=== PATIENT | female | born 1975 | race Caucasian/White ===

== ENCOUNTER 2022-10-24 13:47 | Emergency (ER) | payer BC ==
--- NOTE | 2022-10-24 13:51 | ERPHSYRPT ---
- History of Present Illness Time Seen by Provider: 10/24/22 13:51 Source: patient, family Exam Limitations: no limitations Physician History: This is a morbidly obese 47-year-old white female who presents with left facial pressure, nasal congestion and left latter day pain. She was brought into the emergency department by ambulance. She was wondering first if she was ov erheated or possibly has a sinus infection. She is having the sinus pressure for approximately 1 week. Patient's had some nausea symptoms as well. She denies any acute/traumatic head injury. She arrives to the emergency department with her vital signs stable. Patient has light sensitivity and noise sensitivity. Timing/Duration: today Head Pain Location: temporal (Left) Severity of Pain-Max: mild (To moderate) Severity of Pain-Current: mild (To moderate) Recent Head Trauma: no recent headache/trauma Modifying Factors: Improves With: exposure to light, noise Associated Symptoms: nasal congestion, No confusion, No dizziness, No facial pain, No fever/chills, No neck pain Previous symptoms: no prior history, no recent treatment Allergies/Adverse Reactions: No Known Drug Allergies Allergy (Unverified 10/24/22 13:50) Travel Risk - International Travel Have you traveled outside of the country in past 3 weeks: No - Coronavirus Screening Are you exhibiting any of the following symptoms?: No Close contact with a COVID-19 positive Pt in past 14-21 Days: No - Review of Systems Constitutional: No Symptoms Eyes: No Symptoms Ears, Nose, & Throat: Nose Congestion Respiratory: No Symptoms Cardiac: No Symptoms Abdominal/Gastrointestinal: No Symptoms Genitourinary Symptoms: No Symptoms Musculoskeletal: No Symptoms Skin: No Symptoms Neurological: Headache Psychological: No Symptoms Endocrine: No Symptoms Hematologic/Lymphatic: No Symptoms Immunological/Allergic: No Symptoms All Other Systems: Reviewed and Negative - Past Medical History Pertinent Past Medical History: No - Past Surgical History Past Surgical History: No - Nursing Vital Signs Nursing Vital Signs: Initial Vital Signs Temperature 98.1 F 10/24/22 13:47 Pulse Rate 87 10/24/22 13:47 Respiratory Rate 14 10/24/22 13:47 Blood Pressure 120/78 10/24/22 13:47 O2 Sat by Pulse Oximetry 97 10/24/22 13:47 Pain Scale Pain Intensity 3 - Physical Exam General Appearance: no apparent distress, alert, anxiety, obese Eye Exam: PERRL/EOMI, eyes nml inspection Ears, Nose, Throat Exam: moist mucous membranes Neck Exam: normal inspection, non-tender, supple, full range of motion Respiratory Exam: normal breath sounds, lungs clear, airway intact, No chest tenderness, No respiratory distress Cardiovascular Exam: regular rate/rhythm, normal heart sounds, normal peripheral pulses Gastrointestinal/Abdominal Exam: soft, normal bowel sounds, No tenderness Back Exam: normal inspection, normal range of motion, No CVA tenderness, No vertebral tenderness Extremity Exam: normal inspection, normal range of motion, pelvis stable Mental Status Exam: alert, oriented x 3, 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 Exam: normal hearing, normal speech, PERRL Motor/Sensory Exam: no motor deficit, no sensory deficit Skin Exam: normal color, warm, dry Lymphatic Exam: No adenopathy SpO2 Interpretation: normal O2 Delivery: Room Air - Course Nursing assessment & vital signs reviewed: Yes Ordered Tests: Active Orders 24 hr Category Date Time Status Surgical Aide STAT Care 10/24/22 14:19 Active IV Insertion STAT Care 10/24/22 14:19 Active HEAD WITHOUT CONTRAST [CT] Stat Exams 10/24/22 14:19 Completed CBC W DIFF Stat Lab 10/24/22 14:30 Completed CMP Stat Lab 10/24/22 14:30 Completed CULTURE,URINE Stat Lab 10/24/22 17:08 Received UA W/RFX UR CULTURE Stat Lab 10/24/22 17:08 Completed Medication Summary Generic Name Dose Route Start Last Admin Trade Name Freq PRN Reason Stop Dose Admin Ceftriaxone Sodium/Dextrose 1 g in 50 mls @ 100 mls/hr 10/24/22 17:22 Rocephin 1 Gm-D5w 50 Ml Bag IV 10/24/22 17:51 STAT STA Discontinued Medications Generic Name Dose Route Start Last Admin Trade Name Freq PRN Reason Stop Dose Admin Hydromorphone HCl 0.5 mg 10/24/22 14:19 10/24/22 14:30 Hydromorphone 1 Mg/1ml Inj IV 10/24/22 14:20 0.5 mg STAT ONE Administration Hydromorphone HCl Confirm 10/24/22 14:27 Hydromorphone 1 Mg/1ml Inj Administered 10/24/22 14:28 Dose 1 mg .ROUTE .STK-MED ONE Sodium Chloride 1,000 mls @ 999 mls/hr 10/24/22 14:19 10/24/22 15:42 Sodium Chloride 0.9% 1000 Ml IV 10/24/22 15:19 Infused .Q1H1M STA Infusion Sodium Chloride Confirm 10/24/22 14:28 Sodium Chloride 0.9% 1000 Ml Administered 10/24/22 14:29 Dose 1,000 mls @ ud .ROUTE .STK-MED ONE Ondansetron HCl 4 mg 10/24/22 14:19 10/24/22 14:30 Ondansetron Hcl 4 Mg/2 Ml Vial IV 10/24/22 14:20 4 mg STAT ONE Administration Ondansetron HCl Confirm 10/24/22 14:26 Ondansetron Hcl 4 Mg/2 Ml Vial Administered 10/24/22 14:27 Dose 4 mg .ROUTE .STK-MED ONE Pantoprazole Sodium 40 mg 10/24/22 16:52 10/24/22 16:55 Pantoprazole 40 Mg Vial IV 10/24/22 16:53 40 mg STAT ONE Administration Pantoprazole Sodium Confirm 10/24/22 16:54 Pantoprazole 40 Mg Vial Administered 10/24/22 16:55 Dose 40 mg IV .STK-MED ONE Lab/Rad Data: Laboratory Result Diagrams 10/24/22 14:30 10/24/22 14:30 Laboratory Results 10/24/22 10/24/22 10/24/22 Range/Units 17:08 14:30 14:30 WBC 11.3 H (4.0-10.5) x10^3/uL RBC 4.33 (4.1-5.4) x10^6/uL Hgb 13.0 (12.0-16.0) g/dL Hct 39.4 (35-47) % MCV 91.0 (78-100) fL MCH 30.0 (26-32) pg MCHC 33.0 (32-36) g/dL RDW 11.9 (11.5-14.0) % Plt Count 328 (150-450) x10^3/uL MPV 10.1 (7.5-11.0) fL Gran % 84.3 H (36.0-66.0) % Immature Gran % (Auto) 0.5 H (0.00-0.4) % Nucleat RBC Rel Count 0.0 (0.00-0.1) % Eos # (Auto) 0.03 (0-0.5) x10^3/uL Immature Gran # (Auto) 0.06 H (0.00-0.03) x10^3u/L Absolute Lymphs (auto) 1.12 (1.0-4.6) x10^3/uL Absolute Monos (auto) 0.52 (0.0-1.3) x10^3/uL Absolute Nucleated RBC 0.00 (0.00-0.01) x10^3u/L Lymphocytes % 9.9 L (24.0-44.0) % Monocytes % 4.6 (0.0-12.0) % Eosinophils % 0.3 (0.00-5.0) % Basophils % 0.4 (0.0-0.4) % Absolute Granulocytes 9.57 H (1.4-6.9) x10^3/uL Basophils # 0.04 (0-0.4) x10^3/uL Sodium 138 (137-145) mmol/L Potassium 3.9 (3.5-5.1) mmol/L Chloride 105 (98-107) mmol/L Carbon Dioxide 23 (22-30) mmol/L Anion Gap 14.4 (5-15) MEQ/L BUN 13 (7-17) mg/dL Creatinine 0.58 (0.52-1.04) mg/dL Estimated GFR > 60.0 ML/MIN Glucose 121 H (74-106) mg/dL Calcium 9.0 (8.4-10.2) mg/dL Total Bilirubin 0.60 (0.2-1.3) mg/dL AST 27 (14-36) U/L ALT 19 (0-35) U/L Alkaline Phosphatase 106 (38-126) U/L Serum Total Protein 7.5 (6.3-8.2) g/dL Albumin 4.3 (3.5-5.0) g/dL Urine Color Yellow (Yellow) Urine Appearance Clear (Clear) Urine pH 6.5 (4.6-8.0) Ur Specific [place] 1.010 (1.005-1.030) Urine Protein Negative (Negative) Urine Glucose (UA) Negative (Negative) mg/dL Urine Ketones 40 A (Negative) Urine Blood Negative (Negative) Urine Nitrite Negative (Negative) Urine Bilirubin Negative (Negative) Urine Urobilinogen 0.2 (0.2) mg/dL Ur Leukocyte Esterase Small A (Negative) U Hyaline Cast (Auto) NONE SEEN (0-2) /LPF Urine Microscopic RBC 0-2 (0-5) /HPF Urine Microscopic WBC 6-10 A (0-5) /HPF Ur Epithelial Cells Rare (None Seen) /HPF Urine Bacteria None Seen (None Seen) /HPF Urine Culture Reflexed YES (NO) - Progress Progress: improved, re-examined Air Movement: good Progress Note: 10/24/22 15:47 CT scan of the head without contrast shows a small focus of encephalomalacia of the right cerebellum presumed from an old injury/insult. The sinuses are all clear. This patient's medical issue is 1 of moderate complexity. The level complexity and the workup performed is based on review of the patient's past medical his tory, review of the patient's medication list, review the patient's drug allergy list, history of present illness and physical findings on examination. The workup in this patient includes a urinalysis, placement of an intravenous line, CBC, CMP and CT scan of the head without contrast. I am awaiting the urinalysis. If there is evidence of an infection we will treat this with an antibiotic. CBC, CMP and CT scan of the head without contrast show no acute, emergent abnormality. 10/24/22 17:23 The urinalysis was reviewed in this patient. She has a urinary tract infection which could explain the patient's symptoms. Will provide her with 1 g of Rocephin intravenously followed by outpatient prescription of Cipro 500 mg orally twice a day for 7 days which we will remotely send to her pharmacy. Blood Culture(s) Obtained: No Counseled pt/family regarding: lab results, diagnosis, need for follow-up, rad results Medical Desision Making - Independent Historian Additional History obtained from: Spouse - Diagnostic Testing Diagnostic test were ordered, analyzed, and reviewed by me: Yes Radiological Interpretation: Reviewed by me, Teleradiologist Report - Risk of complications The pt has a mod risk of morbidity or mortality based on: Need for prescription drug management - Departure Departure Disposition: Home Clinical Impression: Headache, Mild dehydration, Urinary tract infection Condition: Stable Critical Care Time: No Referrals: NICK JOHNSON [ACTIVE STAFF] - Follow up/PCP as directed Additional Instructions: Drink plenty fluids. Take your medication as prescribed. Follow-up with your primary care provider for further evaluation and management. Prescriptions: Ciprofloxacin [Cipro 500 MG] 500 mg PO BID #14 tablet
[2022-10-24 14:08] VITALS: TEMP 98.1
[2022-10-24] MEDS ORDERED: Zofran 4 MG/2 ML VIAL IV ONE (14:19)
[2022-10-24] MEDS ORDERED: Sodium Chloride 0.9% 1000 ML 1,000 ML IV STA (14:19)
[2022-10-24] MEDS ORDERED: Hydromorphone 1 mg/ml Injection IV ONE (14:19)
[2022-10-24] MEDS ORDERED: Zofran 4 MG/2 ML VIAL ONE (14:26)
[2022-10-24] MEDS ORDERED: Hydromorphone 1 mg/ml Injection ONE (14:27)
[2022-10-24] MEDS ORDERED: Sodium Chloride 0.9% 1000 ML 1,000 ML ONE (14:28)
[2022-10-24 14:40] LABS: Absolute Neutrophil Ct (ANC) 9.57 x10^3/uL (1.4-6.9); BASOPHIL % 0.4 % (0.0-0.4); Basophil (Absolute #) 0.04 x10^3/uL (0-0.4); Eosinophil % 0.3 % (0.00-5.0); Eosinophil (Absolute #) 0.03 x10^3/uL (0-0.5); Hematocrit 39.4 % (35-47); IMMATURE GRAN # 0.06 x10^3u/L (0.00-0.03); IMMATURE GRAN % 0.5 % (0.00-0.4); Lymphocyte (Absolute #) 1.12 x10^3/uL (1.0-4.6); Lymphocytes % 9.9 % (24.0-44.0); Mean Platelet Volume 10.1 fL (7.5-11.0); Monocyte (Absolute #) 0.52 x10^3/uL (0.0-1.3); Monocytes % 4.6 % (0.0-12.0); Neutrophil % 84.3 % (36.0-66.0); Platelet Count 328 x10^3/uL (150-450); Red Blood Count 4.33 x10^6/uL (4.1-5.4); Red Cell Distribution Width 11.9 % (11.5-14.0); White Blood Count 11.3 x10^3/uL (4.0-10.5)
[2022-10-24 15:05] LABS: ALBUMIN 4.3 g/dL (3.5-5.0); ALKALINE PHOSPHATASE 106 U/L (38-126); ANION GAP 14.4 MEQ/L (5-15); BLOOD UREA NITROGEN 13 mg/dL (7-17); CHLORIDE 105 mmol/L (98-107); Carbon Dioxide 23 mmol/L (22-30); Creatinine 1 0.58 mg/dL (0.52-1.04); EST GLOMERULAR FILTRATION RATE > 60.0 ML/MIN; Glucose 121 mg/dL (74-106); Potassium 3.9 mmol/L (3.5-5.1); SGOT/AST 27 U/L (14-36); SGPT/ALT 19 U/L (0-35); SODIUM 138 mmol/L (137-145); Total Protein 7.5 g/dL (6.3-8.2)
--- NOTE | 2022-10-24 15:22 | XRAY ---
Indication: Headache, nausea, and vomiting. Multiple contiguous axial images obtained through the head without contrast. Comparison: None Ventriculosulcal pattern appears symmetric. Lateral right cerebellum demonstrates small focus of encephalomalacia presumed from old injury/insult. No acute intracranial hemorrhage, hydrocephalus, or mass effect. Fourth ventricle is midline. [place]-white matter differentiation preserved. Bony calvarium intact. Visualized paranasal sinuses and mastoid air cells are clear. 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 Remaining CT head without contrast exam is negative.
[2022-10-24] MEDS ORDERED: PROTONIX 40 MG IV IV ONE ×2 (16:52→16:54)
[2022-10-24 17:14] LABS: ADD URINE CULTURE? YES (NO); Appearance Clear (Clear); Bacteria None Seen /HPF (None Seen); Bilirubin Negative (Negative); Blood Negative (Negative); Epithelial Cells Rare /HPF (None Seen); Glucose, Urine Negative (Negative); Hyaline Casts NONE SEEN /LPF (0-2); Ketones 40 (Negative); Leukocyte Esterase Small (Negative); Nitrite Negative (Negative); Ph 6.5 (4.6-8.0); Protein,Urine Dip Negative (Negative); RBC 0-2 /HPF (0-5); Urobilinogen 0.2 mg/dL (0.2)
[2022-10-24] MEDS ORDERED: ROCEPHIN 1 Gm-D5w 50 ml Bag** 1 G/50 ML IVPB IV STA (17:22)
[2022-10-24] MEDS ORDERED: ROCEPHIN 1 Gm-D5w 50 ml Bag** 1 G/50 ML IVPB IV ONE (17:27)
[2022-10-24 17:43] VITALS: RESP 18; O2SAT 99
[2022-10-24 18:31] VITALS: BP 118/74; PULSE 82
== END 2022-10-24 18:29 | disposition home or self-care (01) ==
LOC: ED 13:47
DX: N39.0 Urinary tract infection, site not specified (principal); R51.9 Headache, unspecified; E86.0 Dehydration; R11.0 Nausea
CPT/HCPCS: 36000; 36415; 70450; 80053; 81001; 85025; 87086; 96360; 96365; 96374; 96375; 99284; J0696; J1170; J2405